=== PATIENT | female | born 1995 | race Caucasian/White ===

== ENCOUNTER 2024-02-14 00:22 | Emergency (ER) | payer OTHER ==
[~2024-02-14] VITALS: Ht 177.8 cm; Wt 113.9 kg
[2024-02-14 00:45] VITALS: TEMP 97.9
[2024-02-14 01:27] VITALS: BP 121/68; PULSE 91; RESP 16; O2SAT 99
== END 2024-02-14 01:26 | disposition home or self-care (01) ==
LOC: ER 00:23
DX: R10.33 Periumbilical pain (principal); Z88.0 Allergy status to penicillin
CPT/HCPCS: 99283